=== PATIENT | male | born 1935 | race Caucasian/White ===

== ENCOUNTER 2016-11-01 05:17 | Day surgery (SDC) | payer OTHER ==
[~2016-11-01] VITALS: Ht 172.7 cm; Wt 68.1 kg
[~2016-11-01 05:17] MED LIST: AMBIEN5 MG PO; FLUVOXAMINE MA100 MG PO; WELLBUTRIN SR150 MG PO; XANAX0.5 MG PO
[2016-11-01 06:56] VITALS: BP 155/80
[2016-11-01 07:52] LABS: HEMATOCRIT 42.8 % (38.0-50.0); MCV 90.5 FL (86-99)
[2016-11-01 11:27] VITALS: BP 146/79
[2016-11-01 11:49] VITALS: BP 134/74
== END 2016-11-01 12:00 | disposition home or self-care (01) ==
LOC: SDC 05:17
PROVIDERS: Anesthesiology
PROC: 0TQD0ZZ Repair Urethra, Open Approach (ICD-10-PCS; principal; 2016-11-01)
DX: N39.3 Stress incontinence (female) (male) (principal); Z85.46 Personal history of malignant neoplasm of prostate; Z90.79 Acquired absence of other genital organ(s); Q64.39 Other atresia and stenosis of urethra and bladder neck; M62.58 Muscle wasting and atrophy, not elsewhere classified, other site; S37.39XA Other injury of urethra, initial encounter; Y92.538 Other ambulatory health services establishments as the place of occurrence of the external cause; Z53.09 Procedure and treatment not carried out because of other contraindication
CPT/HCPCS: 85014; 85018; J0131; J0330; J0690; J1100; J1170; J1580; J2405; J2710; J3010; J7050

== ENCOUNTER 2018-06-07 09:55 | Inpatient (IN) | payer OTHER ==
[~2018-06-07] VITALS: Ht 172.7 cm; Wt 62.5 kg
[2018-06-07 11:22] LABS: BASOPHIL (%) 0.9 % (0-1); BASOPHIL COUNT 0.1 K/uL (0-0.1); EOSINOPHIL (%) 3.7 % (0-5); EOSINOPHIL COUNT 0.4 K/uL (0-0.3); HEMOGLOBIN 14.3 G/DL (12.5-16.6); IMMATURE GRANULOCYTE (%) 0.3 % (0.0-0.7); LYMPHOCYTE (%) 15.8 % (15-42); LYMPHOCYTE COUNT 1.5 K/uL (1.0-2.8); MCH 32.2 PG (29.0-34.0); MCHC 34.9 G/DL (30.0-36.0); MCV 92.3 FL (86-99); MONOCYTE (%) 15.8 % (3-12); MONOCYTE COUNT 1.5 K/uL (0-0.8); NEUTROPHIL (%) 63.5 % (45-76); NEUTROPHIL COUNT 6.1 K/uL (1.8-6.4); PLATELET COUNT 168 K/uL (156-360); RBC DIS.WIDTH-CV 12.1 % (11.8-14.6); RBC DIS.WIDTH-SD 41.5 % (39-53); RED BLOOD COUNT 4.44 M/uL (4.00-5.50); WHITE BLOOD COUNT 9.6 K/uL (4.1-10.2)
[2018-06-07 11:31] LABS: INTER. NORMALIZED RATIO 1.1
[2018-06-07 11:33] LABS: PTT 26.8 SEC (25-37)
[2018-06-07 11:34] LABS: APPEARANCE CLEAR ((CLEAR)); BILIRUBIN NEGATIVE; BLOOD NEGATIVE; COLOR YELLOW ((YELLOW)); GLUCOSE (STRIP) NEGATIVE; KETONES NEGATIVE; LEUKOCYTES NEGATIVE; NITRITE NEGATIVE; PROTEIN (STRIP) NEGATIVE; SPECIFIC GRAVITY 1.013 (1.000-1.030); UCUL ADDED? NO; UROBILINOGEN 0.2 MG/DL (0.2-1.0)
[2018-06-07 11:35] LABS: ALBUMIN 3.9 g/dL (3.2-4.8); CHLORIDE 105 mEq/L (99-109); POTASSIUM 3.9 mEq/L (3.7-5.4); SODIUM 139 mEq/L (136-147)
[2018-06-07 11:37] LABS: GLUCOSE 94 mg/dL (70-99); TOTAL PROTEIN 6.3 g/dL (6.4-8.3)
[2018-06-07 11:39] LABS: TOTAL BILIRUBIN 0.7 mg/dL (0.0-1.0)
[2018-06-07 11:41] LABS: ALKALINE PHOSPHATASE 64 IU/L (3-129); CREATININE 0.9 mg/dL (0.6-1.3); GFR ESTIMATE (CALCULATED) > 59 mL/min/ (58.99-99999)
[2018-06-07 11:42] LABS: AST (GOT) 16 IU/L (2-34); UREA NITROGEN (BUN) 14 mg/dL (9-23)
[2018-06-07 11:43] LABS: DIRECT BILIRUBIN 0.2 mg/dL (0.0-0.3); TROP-I INTERPRETATION NEGATIVE; TROPONIN-I < 0.01 ng/mL (0.0-0.30)
[2018-06-07 11:44] LABS: ALT (GPT) 15 IU/L (3-49); CREATINE KINASE 78 IU/L (1-294)
[2018-06-07] MEDS ORDERED: ABILIFY2 MG PO (18:14)
[2018-06-07] MEDS ORDERED: WELLBUTRIN SR100 MG PO (18:14)
[2018-06-07] MEDS ORDERED: ZOLPIDEM TARTRAT5 MG PO (18:15)
[2018-06-07 18:38] VITALS: BP 159/82
[2018-06-07 23:33] VITALS: BP 148/82
[2018-06-08] VITALS (7 sets, daily range): BP systolic 125–132; BP diastolic 65–77
[2018-06-08 06:25] LABS: HEMATOCRIT 43.4 % (38.0-50.0); HEMOGLOBIN 15.3 G/DL (12.5-16.6); MCHC 35.3 G/DL (30.0-36.0); MCV 90.8 FL (86-99); PLATELET COUNT 203 K/uL (156-360); RBC DIS.WIDTH-CV 11.9 % (11.8-14.6); RBC DIS.WIDTH-SD 39.9 % (39-53); RED BLOOD COUNT 4.78 M/uL (4.00-5.50); WHITE BLOOD COUNT 8.7 K/uL (4.1-10.2)
[2018-06-08 06:46] LABS: ALBUMIN 3.9 G/DL (3.2-4.8); ALKALINE PHOSPHATASE 64 IU/L (3-129); ALT (GPT) 13 IU/L (3-49); AST (GOT) 17 IU/L (2-34); CHLORIDE 102 MEQ/L (99-109); CREATININE 0.8 MG/DL (0.6-1.3); GFR ESTIMATE (CALCULATED) > 59 mL/min/ (58.99-99999); POTASSIUM 4.4 MEQ/L (3.7-5.4); SODIUM 138 MEQ/L (136-147); UREA NITROGEN (BUN) 9 mg/dL (9-23)
[2018-06-08 06:47] LABS: GLUCOSE 158 mg/dL (70-99)
[2018-06-09 07:11] VITALS: BP 137/71
[2018-06-09 11:32] VITALS: BP 123/71
[2018-06-09 14:46] VITALS: BP 122/72
[2018-06-09 19:39] VITALS: BP 160/79
[2018-06-09 23:29] VITALS: BP 135/70
[2018-06-10 04:23] VITALS: BP 143/69
[2018-06-10 06:55] LABS: BASOPHIL (%) 0.1 % (0-1); EOSINOPHIL (%) 0 % (0-5); HEMATOCRIT 40.2 % (38.0-50.0); HEMOGLOBIN 13.9 G/DL (12.5-16.6); LYMPHOCYTE (%) 3.9 % (15-42); LYMPHOCYTE COUNT 0.7 K/uL (1.0-2.8); MCH 31.6 PG (29.0-34.0); MCHC 34.6 G/DL (30.0-36.0); MCV 91.4 FL (86-99); MONOCYTE (%) 4.1 % (3-12); MONOCYTE COUNT 0.7 K/uL (0-0.8); NEUTROPHIL (%) 90.9 % (45-76); NEUTROPHIL COUNT 16.5 K/uL (1.8-6.4); PLATELET COUNT 225 K/uL (156-360); RBC DIS.WIDTH-CV 12.2 % (11.8-14.6); RBC DIS.WIDTH-SD 40.7 % (39-53); WHITE BLOOD COUNT 18.1 K/uL (4.1-10.2)
[2018-06-10 07:50] LABS: CHLORIDE 105 MEQ/L (99-109); CREATININE 0.8 MG/DL (0.6-1.3); GFR ESTIMATE (CALCULATED) > 59 mL/min/ (58.99-99999); GLUCOSE 146 mg/dL (70-99); POTASSIUM 4.2 MEQ/L (3.7-5.4); SODIUM 141 MEQ/L (136-147)
[2018-06-10 07:53] LABS: UREA NITROGEN (BUN) 28 mg/dL (9-23)
[2018-06-10 08:42] VITALS: BP 152/77
[2018-06-10 11:56] VITALS: BP 146/76
[2018-06-10 15:51] VITALS: BP 144/76
[2018-06-10 20:22] VITALS: BP 148/82
[2018-06-11 00:32] VITALS: BP 144/78
[2018-06-11 04:05] VITALS: BP 137/73
[2018-06-11 07:54] VITALS: BP 142/84
[2018-06-11] MEDS ORDERED: LEVETIRACETAM500 MG PO (11:55)
[2018-06-11 11:56] VITALS: BP 132/86
[2018-06-11] MEDS ORDERED: DEXAMETHASONE4 MG PO (11:56)
[2018-06-11 15:30] VITALS: BP 112/74
== END 2018-06-11 15:43 | DRG 55 ==
LOC: EME 09:55 → EDOF 17:19 → 3EAST 17:19 → ENRESERV 17:29 → 3EAST 18:17
PROVIDERS: Emergency Medicine; Hospitalist; Internal Medicine
DX: C71.1 Malignant neoplasm of frontal lobe (principal); H53.2 Diplopia; R53.1 Weakness; S00.03XA Contusion of scalp, initial encounter; S00.83XA Contusion of other part of head, initial encounter; S00.12XA Contusion of left eyelid and periocular area, initial encounter; S00.11XA Contusion of right eyelid and periocular area, initial encounter; W19.XXXA Unspecified fall, initial encounter; F41.9 Anxiety disorder, unspecified; F32.9 Major depressive disorder, single episode, unspecified; R32 Unspecified urinary incontinence; Z66 Do not resuscitate; R29.6 Repeated falls; Z91.81 History of falling; Z85.46 Personal history of malignant neoplasm of prostate
CPT/HCPCS: 70150; 70450; 70486; 70553; 71045; 71260; 72125; 73502; 74177; 80048; 80053; 80076; 81003; 82550; 84484; 85025; 85027; 85610; 85730; 93005; 99281; 99285; J1100; J7040; J8540